=== PATIENT | female | born 1990 | race Caucasian/White ===

== ENCOUNTER 2017-11-18 14:21 | Inpatient (IN) | payer BC ==
[~2017-11-18] VITALS: Ht 166.4 cm; Wt 86.3 kg
[2017-11-18 14:26] VITALS: Ht 166.4 cm; Wt 86.3 kg
[2017-11-18 16:01] LABS: microscopic required? NO
[2017-11-18 16:13] LABS: UA SPECIFIC GRAVITY 1.025 (1.005-1.035); urine erythrocyte NEGATIVE (NEGATIVE)
[2017-11-18 16:17] LABS: BASOPHIL % 0.3 % (0-2); PLATELET COUNT 248 x10^3mcL (130-400); RED CELL DISTRIBUTION WIDTH 14.2 % (11.5-14.5)
[2017-11-18 16:19] LABS: CALCIUM 8.6 mg/dL (8.5-10.1); CARBON DIOXIDE 28.5 mmol/L (21-32); CHLORIDE SERUM 101 mmol/L (98-107); CREATININE SERUM 0.8 mg/dL (0.6-1.0); GFR1 > 60 mL/min; GLUCOSE SERUM 82 mg/dL (74-106); POTASSIUM SERUM 3.5 mmol/L (3.5-5.1); SODIUM SERUM 137 mmol/L (136-145)
[2017-11-18 16:24] LABS: ALBUMIN 3.8 g/dL (3.4-5.0); ALKALINE PHOSPHATASE 87 U/L (46-116); ALT/SGPT 26 U/L (14-59); AMYLASE 33 U/L (25-115); AST/SGOT 15 U/L (15-37); LIPASE 109 IU/L (73-393); TOTAL PROTEIN, SERUM 7.6 g/dL (6.4-8.2)
[2017-11-18 16:25] LABS: AMPHETAMINE QUAL UR NONE DETECTED (NEG <=1000)
[2017-11-18 21:45] LABS: MAGNESIUM 2.3 mg/dL (1.8-2.4); PHOSPHOROUS 3.3 mg/dL (2.5-4.9)
[2017-11-18 21:53] LABS: T3 TOTAL 0.65 ng/mL
[2017-11-18 22:06] LABS: FREE T4 1.12 ng/dL (0.76-1.46); FREE THYROXINE INDEX 2.3 ug/dL (1.4-4.5); T4(THYROXINE) 6.1 ug/dL (4.7-13.3)
[2017-11-18 22:12] VITALS: BP 129/86
[2017-11-19 05:50] VITALS: BP 108/61
[2017-11-19 06:03] LABS: BASOPHIL % 0.3 % (0-2); PLATELET COUNT 203 x10^3mcL (130-400); RED CELL DISTRIBUTION WIDTH 14.5 % (11.5-14.5)
[2017-11-19 06:20] LABS: CARBON DIOXIDE 22.7 mmol/L (21-32); CHLORIDE SERUM 105 mmol/L (98-107); POTASSIUM SERUM 4.1 mmol/L (3.5-5.1); SODIUM SERUM 140 mmol/L (136-145)
[2017-11-19 06:37] LABS: CALCIUM 8.1 mg/dL (8.5-10.1); CREATININE SERUM 0.8 mg/dL (0.6-1.0); GFR1 > 60 mL/min; GLUCOSE SERUM 74 mg/dL (74-106); MAGNESIUM 2.4 mg/dL (1.8-2.4); PHOSPHOROUS 3.8 mg/dL (2.5-4.9)
[2017-11-19 09:41] VITALS: BP 109/56
[2017-11-19 12:15] VITALS: BP 122/72
[2017-11-19 13:46] VITALS: BP 109/73
[2017-11-19 17:58] VITALS: BP 110/65
[2017-11-19 21:43] VITALS: BP 106/54
[2017-11-20 06:04] VITALS: BP 1110/64
[2017-11-20 08:07] LABS: CALCIUM 8.2 mg/dL (8.5-10.1); CARBON DIOXIDE 24.4 mmol/L (21-32); CHLORIDE SERUM 106 mmol/L (98-107); CREATININE SERUM 0.7 mg/dL (0.6-1.0); GFR1 > 60 mL/min; GLUCOSE SERUM 75 mg/dL (74-106); MAGNESIUM 2.2 mg/dL (1.8-2.4); PHOSPHOROUS 3.4 mg/dL (2.5-4.9); POTASSIUM SERUM 4.1 mmol/L (3.5-5.1); SODIUM SERUM 141 mmol/L (136-145)
[2017-11-20 08:12] LABS: BASOPHIL % 0.3 % (0-2); PLATELET COUNT 213 x10^3mcL (130-400); RED CELL DISTRIBUTION WIDTH 14.2 % (11.5-14.5)
[2017-11-20 10:00] VITALS: BP 103/67
[2017-11-20] MEDS ORDERED: GAS RELIEF 8080 MG PO (14:00)
[2017-11-20] MEDS ORDERED: COLACE100 MG PO (14:01)
[2017-11-20] MEDS ORDERED: NORCO1 TA2 PO (14:01)
[2017-11-20] MEDS ORDERED: TYLENOL325 M1 PO (14:02)
[2017-11-20 15:27] VITALS: BP 103/67
== END 2017-11-20 16:23 | disposition home or self-care (01) | DRG 343 ==
LOC: ED 14:21 → DU 20:32 → MU 11-19 16:48
PROVIDERS: Emergency Medicine; Family Medicine; Surgery
PROC: 0DTJ4ZZ Resection of Appendix, Percutaneous Endoscopic Approach (ICD-10-PCS; principal; 2017-11-19 09:30)
DX: K35.80 Unspecified acute appendicitis (principal)
CPT/HCPCS: 83880; 84439; 94150; J0690; J1170; J1885; J2250; J2270; J2405; J2543; J3010; J3490; J7030; Q9967